=== PATIENT | male | born 1975 | race Caucasian/White ===

== ENCOUNTER 2020-08-21 11:39 | Inpatient (IN) | payer BC ==
--- NOTE | 2020-08-21 12:02 | EDM.PDOC ---
ED HPI GENERAL MEDICAL PROBLEM - General Stated Complaint: UTI Time Seen by Provider: 08/21/20 11:45 Source of Information: Reports: Patient History Limitations: Reports: No Limitations - History of Present Illness INITIAL COMMENTS - FREE TEXT/NARRATIVE: pt c/o lower abd pain radiating to his back x 1 week w fever and chills, denies nausea, emesis, or diarrhea , report constipation and dysuria. right lower abd Pain Score (Numeric/FACES): 8 - Related Data Allergies Allergy/AdvReac Type Severity Reaction Status Date / Time No Known Allergies Allergy Verified 08/21/20 12:04 Home Meds: Home Meds NK [No Known Home Meds] 08/21/20 [History] ED ROS GENERAL - Review of Systems Review Of Systems: See Below Constitutional: Reports: Fever, Chills HEENT: Reports: No Symptoms Respiratory: Reports: No Symptoms Cardiovascular: Reports: No Symptoms GI/Abdominal: Reports: Abdominal Pain : Reports: Dysuria, Frequency Musculoskeletal: Reports: No Symptoms Skin: Reports: No Symptoms Neurological: Reports: No Symptoms Psychiatric: Reports: No Symptoms ED EXAM, GENERAL - Physical Exam Exam: See Below Exam Limited By: No Limitations General Appearance: Alert, Moderate Distress Nose: Normal Inspection Throat/Mouth: Normal Inspection, Normal Oropharynx Head: Atraumatic, Normocephalic Neck: Normal Inspection, Supple, Non-Tender Respiratory/Chest: No Respiratory Distress, Lungs Clear Cardiovascular: Normal Peripheral Pulses, Regular Rate, Rhythm GI/Abdominal: Normal Bowel Sounds, Soft, Tender (tender over lower abd , pt has bilateral CVAT.). No: Guarding, Rebound Back Exam: Normal Inspection Extremities: Normal Inspection, Normal Range of Motion Neurological: Alert, CN II-XII Intact, Normal Reflexes, No Motor/Sensory Deficits Skin Exam: Warm Course - Vital Signs Text/Narrative:: labs and CT results were explained to pt. pt has bilateral pyelonephritis , cipro and tylenol were given. Dr Taylor was contacted and was in acceptance of pt care. Last Recorded V/S: Last Vital Signs Temp 37.7 C 08/21/20 11:39 Pulse 110 H 08/21/20 11:39 Resp 18 08/21/20 11:39 BP 142/71 H 08/21/20 11:39 Pulse Ox 100 08/21/20 11:39 - Orders/Labs/Meds Orders: Active Orders 24 hr Category Date Time Status Abdomen Pelvis w Cont [CT] Stat Exams 08/21/20 12:03 Taken Sodium Chloride 0.9% [Normal Saline] 1,000 ml Med 08/21/20 12:03 Active IV .BOLUS Sodium Chloride 0.9% [Normal Saline] 1,000 ml Med 08/21/20 13:45 Active IV ASDIRECTED Medication Orders Sodium Chloride (Normal Saline) 1,000 mls @ 999 drops/hr IV .BOLUS ONE Stop: 08/22/20 03:03 Last Admin: 08/21/20 12:17 Dose: 999 drops/hr Documented by: LANE Sodium Chloride (Normal Saline) 1,000 mls @ 150 mls/hr IV ASDIRECTED MANDO Labs: Laboratory Tests 08/21/20 08/21/20 08/21/20 Range/Units 12:47 12:47 12:47 WBC 7.5 (3.2-10.1) x10-3/uL RBC 5.16 (3.90-5.90) x10(6)uL Hgb 14.8 (12.9-17.7) g/dL Hct 44.9 (38.3-50.1) % MCV 87.0 (80.8-98.7) fL MCH 28.7 (27.0-33.3) pg MCHC 33.1 (28.7-35.3) g/dL RDW 12.7 (12.4-15.0) % Plt Count 173 (117-477) x10(3)uL MPV 8.6 (6.7-11.0) fL Add Manual Diff Yes Neutrophils % (Manual) 89 H (46-82) % Band Neutrophils % 1 (0-6) % Lymphocytes % (Manual) 8 L (13-37) % Monocytes % (Manual) 2 L (4-12) % Sodium 141 (135-145) mmol/L Potassium 4.0 (3.5-5.3) mmol/L Chloride 102 (100-110) mmol/L Carbon Dioxide 27 (21-32) mmol/L BUN 12 (7-18) mg/dL Creatinine 1.4 H (0.70-1.30) mg/dL Est Cr Clr Drug Dosing 64.65 mL/min Estimated GFR (MDRD) 55 L (>60) BUN/Creatinine Ratio 8.6 L (9-20) Glucose 106 (80-116) mg/dL Calcium 9.2 (8.6-10.2) mg/dL Total Bilirubin 1.0 (0.1-1.3) mg/dL AST 48 H (5-25) IU/L ALT 98 H (12-36) U/L Alkaline Phosphatase 189 H (56-112) IU/L Total Protein 8.0 (6.0-8.0) g/dL Albumin 3.4 L (3.5-5.2) g/dL Globulin 4.6 g/dL Albumin/Globulin Ratio 0.7 Lipase 86 (73-393) U/L Meds: Medications Generic Name Dose Route Start Last Admin Trade Name Freq PRN Reason Stop Dose Admin Sodium Chloride 1,000 mls @ 999 drops/hr 08/21/20 12:03 08/21/20 12:17 Normal Saline IV 08/22/20 03:03 999 drops/hr .BOLUS ONE Administration Sodium Chloride 1,000 mls @ 150 mls/hr 08/21/20 13:45 Normal Saline IV ASDIRECTED MANDO Discontinued Medications Generic Name Dose Route Start Last Admin Trade Name Freq PRN Reason Stop Dose Admin Acetaminophen 1,000 mg 08/21/20 13:47 Tylenol Extra Strength PO 08/21/20 13:48 ONETIME ONE Hydromorphone HCl 1 mg 08/21/20 13:45 Dilaudid IVPUSH 08/21/20 13:46 ONETIME ONE Iopamidol 100 ml 08/21/20 12:36 08/21/20 12:57 Isovue-370 (76%) IV 08/21/20 12:37 100 ml . DIRECTED ONE Administration Morphine Sulfate 4 mg 08/21/20 12:03 08/21/20 12:17 Morphine IVPUSH 08/21/20 12:04 4 mg ONETIME ONE Administration Ondansetron HCl 4 mg 08/21/20 12:10 08/21/20 12:17 Zofran IVPUSH 08/21/20 12:11 4 mg ONETIME ONE Administration Departure - Departure Time of Disposition: 13:52 Disposition: Admitted As Inpatient 65 Clinical Impression: Acute pyelonephritis - Discharge Information Sepsis Event Note (ED) - Focused Exam Vital Signs: Vital Signs Temp Pulse Resp BP Pulse Ox 08/21/20 11:39 37.7 C 110 H 18 142/71 H 100 - My Orders Last 24 Hours: My Active Orders 08/21/20 12:03 Abdomen Pelvis w Cont [CT] Stat Sodium Chloride 0.9% [Normal Saline] 1,000 ml IV .BOLUS 08/21/20 13:45 Sodium Chloride 0.9% [Normal Saline] 1,000 ml IV ASDIRECTED - Assessment/Plan Last 24 Hours: My Active Orders 08/21/20 12:03 Abdomen Pelvis w Cont [CT] Stat Sodium Chloride 0.9% [Normal Saline] 1,000 ml IV .BOLUS 08/21/20 13:45 Sodium Chloride 0.9% [Normal Saline] 1,000 ml IV ASDIRECTED
[2020-08-21] MEDS ORDERED: Morphine 4 MG/ML VIAL IVPUSH ONE (12:03)
[2020-08-21] MEDS ORDERED: Sodium Chloride 0.9% 1,000 ML IV ONE (12:03)
[2020-08-21] MEDS ORDERED: Ondansetron 4 MG/2 ML SDV IVPUSH ONE (12:10)
[2020-08-21] MEDS ORDERED: Iopamidol 755 Mg/ML 100 ML Bottle IV ONE (12:36)
[2020-08-21] MEDS ORDERED: HYDROmorphone 2 MG/ML SDV IVPUSH ONE (13:45)
[2020-08-21] MEDS ORDERED: Acetaminophen 500 MG Tab PO ONE (13:47)
[2020-08-21] MEDS: Sodium Chloride 0.9% 1,000 ML IV SCH ×2 (13:51→20:18)
[2020-08-21] MEDS ORDERED: Ciprofloxacin in D5W 400 MG in Premix Bag 1 BAG IV ONE ×2 (13:54)
[2020-08-21] MEDS ORDERED: Acetaminophen 500 MG Tab PO PRN (14:20)
[2020-08-21] MEDS ORDERED: Acetaminophen/HYDROcodone 325-5 MG Tab PO PRN (14:21)
[2020-08-21] MEDS ORDERED: Ketorolac 30 MG/ML SDV IVPUSH SCH (14:30)
--- NOTE | 2020-08-21 14:59 | CT ---
INDICATION: Abdominal pain - right lower quadrant, question appy. CT ABDOMEN AND PELVIS WITH CONTRAST: Spiral 3.75 mm axial sections were obtained through the abdomen and pelvis with 100 mL of Isovue-370 at 2 mL per second with sagittal and coronal reconstructions 08/21/20 - no comparisons. Total exam DLP was 529.39 mGy-cm. The lower lung vanegas and pleural spaces visualized revealed some minimal linear appearing densities subpleural at the left lower lobe at the lung base which may represent fibrosis. A definite active infiltrate or effusion was not identified. Heart did not appear enlarged. No pericardial effusion was seen. The liver, gallbladder, adrenal glands, spleen, and pancreas appeared normal. No hepatobiliary dilatation was suggested. No retroperitoneal masses were identified. A mild degree of retroperitoneal lymphadenopathy is noted which is nonspecific, but could be reactive to infection. The kidneys appeared normal in size and shape with no cortical irregularities or evidence of obstructive uropathy or definite calculi. However, there are multiple areas of decreased contrast enhancement of the renal cortex bilaterally strongly suggestive pyelonephritis. Additionally, in the urinary bladder, there is some thickening of the urinary bladder wall which suggests the possibility of cystitis. What appears to be the appendix was seen on axial images 76 through 85 and did not suggest appendicitis. What appears to be a calcific rim low-density mass is noted in the upper pelvis - lower abdomen near the midline just to the left which measures approximately 2 cm and is of questionable etiology. It may represent a peritoneal calculus of indeterminate nature. No evidence of free air or bowel obstruction was identified. No other organomegaly, mass lesions, or free fluid collections were identified in the abdomen or pelvis. IMPRESSION: Findings are felt to be compatible with pyelonephritis and cystitis, but should be correlated clinically. Report was called to Dr. Gonzales at 1312 hours. [facility]
--- NOTE | 2020-08-21 15:35 | PCM.HP.2 ---
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 Dr Waggoner saw him did labs and UA, suspected pyelonephritis, so sent over to ER for further evaluation and CT scan. His highest fever has been 104.9F, has been taking acetaminophen & ibuprofen alternating at home. Denies any sinus symptoms, shortness of breath, nausea, vomiting or diarrhea. Had a small hard stool yesterday. He states he has had some discharge on his underwear, no new sexual partners in last 10 years, and reports that the bathrooms at work are not clean, when he has to sit down to use when he has bowel movement. Bilateral CVA tenderness in ER, had CT abdomen/pelvis in ER and found to have bilateral pyelonephritis with cystitis. UA positive done in clinic showed large blood, nitrites positive, Large Leukocyte esterase, >30/hpf RBC, >50/hpf WBC, occasional epithelial cells, Moderate bacteria, WBC clumps present. Urine culture pending at [facility] lab, will get plated tonight, possible prelim report on Tuesday. right lower abd Pain Score (Numeric/FACES): 8 - Related Data Allergies/Adverse Reactions: Allergies Allergy/AdvReac Type Severity Reaction Status Date / Time No Known Allergies Allergy Verified 08/21/20 12:04 Home Medications: Home Meds NK [No Known Home Meds] 08/21/20 [History] Past Medical History - Past Health History Medical/Surgical History: Denies Medical/Surgical History Social & Family History - Tobacco Use Tobacco Use Status *Q: Never Tobacco User H&P Review of Systems - Review of Systems: Review Of Systems: Comprehensive ROS is negative, except as noted in HPI. Exam - Exam Exam: See Below - Vital Signs Vital Signs: Last Vital Signs Temp 99.8 F 08/21/20 11:39 Pulse 110 H 08/21/20 11:39 Resp 18 08/21/20 11:39 BP 142/71 H 08/21/20 11:39 Pulse Ox 100 08/21/20 11:39 Weight: 178 lb - Exam General: Alert, Oriented, Cooperative HEENT: PERRLA, Conjunctiva Clear, EOMI, Hearing Intact, Mucosa Moist & [place], Posterior Pharynx Clear Neck: Trachea Midline Lungs: Clear to Auscultation, Normal Respiratory Effort. No: Wheezing Cardiovascular: Tachycardia. No: Systolic Murmur, Diastolic Murmur GI/Abdominal Exam: Normal Bowel Sounds, Soft, No Distention, Guarding, Tender. No: Rigid, Rebound (Male) Exam: Deferred Extremities: No Pedal Edema, Normal Capillary Refill Peripheral Pulses: 2+: Radial (L), Radial (R) Skin: Warm, Dry, Intact. No: Rash Psychiatric: Normal Affect, Normal Mood - Patient Data Lab Results Last 24 hrs: Laboratory Results - last 24 hr 08/21/20 08/21/20 08/21/20 Range/Units 12:47 12:47 12:47 WBC 7.5 (3.2-10.1) x10-3/uL RBC 5.16 (3.90-5.90) x10(6)uL Hgb 14.8 (12.9-17.7) g/dL Hct 44.9 (38.3-50.1) % MCV 87.0 (80.8-98.7) fL MCH 28.7 (27.0-33.3) pg MCHC 33.1 (28.7-35.3) g/dL RDW 12.7 (12.4-15.0) % Plt Count 173 (117-477) x10(3)uL MPV 8.6 (6.7-11.0) fL Add Manual Diff Yes Neutrophils % (Manual) 89 H (46-82) % Band Neutrophils % 1 (0-6) % Lymphocytes % (Manual) 8 L (13-37) % Monocytes % (Manual) 2 L (4-12) % Sodium 141 (135-145) mmol/L Potassium 4.0 (3.5-5.3) mmol/L Chloride 102 (100-110) mmol/L Carbon Dioxide 27 (21-32) mmol/L BUN 12 (7-18) mg/dL Creatinine 1.4 H (0.70-1.30) mg/dL Est Cr Clr Drug Dosing 64.65 mL/min Estimated GFR (MDRD) 55 L (>60) BUN/Creatinine Ratio 8.6 L (9-20) Glucose 106 (80-116) mg/dL Calcium 9.2 (8.6-10.2) mg/dL Total Bilirubin 1.0 (0.1-1.3) mg/dL AST 48 H (5-25) IU/L ALT 98 H (12-36) U/L Alkaline Phosphatase 189 H (56-112) IU/L Total Protein 8.0 (6.0-8.0) g/dL Albumin 3.4 L (3.5-5.2) g/dL Globulin 4.6 g/dL Albumin/Globulin Ratio 0.7 Lipase 86 (73-393) U/L Result Diagrams: 08/21/20 12:47 08/21/20 12:47 Sepsis Event Note - Evaluation Sepsis Screening Result: No Definite Risk - Focused Exam Vital Signs: Vital Signs Temp Pulse Resp BP Pulse Ox 08/21/20 11:39 99.8 F 110 H 18 142/71 H 100 - Problem List (1) Acute pyelonephritis SNOMED Code(s): 37375129 ICD Code: N10 - ACUTE PYELONEPHRITIS Status: Acute Current Visit: Yes Problem Details: Bilateral pyelonephritis on CT with acute cystitis. Appendix was normal. Prostate was not commented Ciprofloxacin 400 mg IV q12h, NS at 150 ml/hr. UA done in clinic, culture was done and sent to [facility] lab from clinic, preliminary report possibly Tuesday with final on Tuesday. Toradol 30 mg IV q6h, Acetaminophen 650 mg q4h as needed, hydrocodone/apap 5/325 mg q4h as needed severe pain. Zofran 4 mg as needed nausea. (2) Acute cystitis SNOMED Code(s): 16890890 ICD Code: N30.00 - ACUTE CYSTITIS WITHOUT HEMATURIA Status: Acute Current Visit: Yes Problem Details: UA: blood, leukocytes, done at [facility] will check to see if they did culture. He had ciprofloxacin done in ER already. (3) Dehydration SNOMED Code(s): 80570107 ICD Code: E86.0 - DEHYDRATION Status: Acute Current Visit: Yes (4) Fever SNOMED Code(s): 647877834 ICD Code: R50.9 - FEVER, UNSPECIFIED Status: Acute Current Visit: Yes Problem List Initiated/Reviewed/Updated: Yes Orders Last 24hrs: Active Orders 24 hr Category Date Time Status Patient Status [ADT] Routine ADT 08/21/20 14:01 Active Ambulate [RC] ASDIRECTED Care 08/21/20 15:29 Ordered Oxygen Therapy [RC] PRN Care 08/21/20 14:01 Active VTE/DVT Education [RC] Per Unit Routine Care 08/21/20 14:01 Active Vital Signs [RC] Q4H Care 08/21/20 14:01 Active Regular Diet [DIET] Diet 08/21/20 Dinner Ordered BASIC METABOLIC PANEL,BMP [CHEM] Routine Lab 08/22/20 06:00 Ordered Acetaminophen [Tylenol Extra Strength] Med 08/21/20 14:20 Active 650 mg PO Q4H PRN Acetaminophen/HYDROcodone [[place] 325-5 MG] Med 08/21/20 14:21 Active 1 tab PO Q4H PRN Ciprofloxacin in D5W [Cipro in D5W 400 MG/200 ML] 400 Med 08/22/20 02:00 Active mg Premix Bag 1 bag IV Q12H Ketorolac [Toradol] Med 08/21/20 14:30 Active 30 mg IVPUSH Q6H Sodium Chloride 0.9% [Normal Saline] 1,000 ml Med 08/21/20 12:03 Active IV .BOLUS Sodium Chloride 0.9% [Normal Saline] 1,000 ml Med 08/21/20 13:45 Active IV ASDIRECTED Resuscitation Status Routine Resus Stat 08/21/20 14:01 Ordered Medication Orders Acetaminophen (Tylenol Extra Strength) 650 mg PO Q4H PRN PRN Reason: Pain Hydrocodone Bitart/Acetaminophen ([place] 325-5 Mg) 1 tab PO Q4H PRN PRN Reason: Pain (severe 7-10) Sodium Chloride (Normal Saline) 1,000 mls @ 999 drops/hr IV .BOLUS ONE Stop: 08/22/20 03:03 Last Admin: 08/21/20 12:17 Dose: 999 drops/hr Documented by: LANE Sodium Chloride (Normal Saline) 1,000 mls @ 150 mls/hr IV ASDIRECTED [facility] Last Admin: 08/21/20 13:51 Dose: 150 mls/hr Documented by: LANE Ciprofloxacin/Dextrose 400 mg/ (Premix) 200 mls @ 200 mls/hr IV Q12H MANDO Ketorolac Tromethamine (Toradol) 30 mg IVPUSH Q6H [facility] Stop: 08/26/20 14:31 Assessment/Plan Comment:: 1. Admit for inpatient treatment of Bilateral pyelonephritis, acute cystitis, dehydration, fever. 2. Pyelonephritis: Cipro 400 mg IV q12h, NS at 150ml/hr, repeat BMP tomorrow. Fever/pain: acetaminophen as needed, Toradol 30 mg scheduled, hydrocodone/apap 5/325 mg po q4h as needed severe pain. UA done at [place], culture was done and sent to [facility] lab, will check on Sat/Sun for prelim report. 3. Regular diet. 4. Ambulate. 5. CODE: FULL. - Mortality Measure Prognosis:: Good
[2020-08-21] MEDS ORDERED: Ketorolac 30 MG/ML SDV IVPUSH PRN (16:21)
[2020-08-22] MEDS: Ciprofloxacin in D5W 400 MG in Premix Bag 1 BAG IV SCH ×4 (02:21→15:03)
[2020-08-22] MEDS: Sodium Chloride 0.9% 1,000 ML IV SCH ×3 (02:37→19:25)
[2020-08-22] MEDS: Saccharomyces Boulardii (Probiotic) 250 MG Cap PO SCH ×2 (10:16→21:29)
--- NOTE | 2020-08-22 10:24 | PCM.PN ---
- General Info Date of Service: 08/22/20 Subjective Update: Jose Roberto is feeling better this morning, had pain early this morning but nothing now. Getting ready to eat breakfast. Had a small hard stool this morning. He states he did not sleep well, usually takes Melatonin and a sleep tea at night. No nausea or vomiting. - Patient Data Vitals - Most Recent: Last Vital Signs Temp 97.9 F 08/22/20 08:00 Pulse 74 08/22/20 08:00 Resp 16 08/22/20 08:00 BP 96/62 08/22/20 08:00 Pulse Ox 97 08/22/20 08:00 Weight - Most Recent: 171 lb 5 oz I&O - Last 24 Hours: Intake & Output 08/21/20 08/22/20 08/22/20 22:59 06:59 14:59 Intake Total 2260 1360 Output Total 950 Balance 2260 410 Lab Results Last 24 Hours: Laboratory Results - last 24 hr 08/21/20 08/21/20 08/21/20 Range/Units 12:47 12:47 12:47 WBC 7.5 (3.2-10.1) x10-3/uL RBC 5.16 (3.90-5.90) x10(6)uL Hgb 14.8 (12.9-17.7) g/dL Hct 44.9 (38.3-50.1) % MCV 87.0 (80.8-98.7) fL MCH 28.7 (27.0-33.3) pg MCHC 33.1 (28.7-35.3) g/dL RDW 12.7 (12.4-15.0) % Plt Count 173 (117-477) x10(3)uL MPV 8.6 (6.7-11.0) fL Add Manual Diff Yes Neutrophils % (Manual) 89 H (46-82) % Band Neutrophils % 1 (0-6) % Lymphocytes % (Manual) 8 L (13-37) % Monocytes % (Manual) 2 L (4-12) % Sodium 141 (135-145) mmol/L Potassium 4.0 (3.5-5.3) mmol/L Chloride 102 (100-110) mmol/L Carbon Dioxide 27 (21-32) mmol/L BUN 12 (7-18) mg/dL Creatinine 1.4 H (0.70-1.30) mg/dL Est Cr Clr Drug Dosing 64.65 mL/min Estimated GFR (MDRD) 55 L (>60) BUN/Creatinine Ratio 8.6 L (9-20) Glucose 106 (80-116) mg/dL Calcium 9.2 (8.6-10.2) mg/dL Total Bilirubin 1.0 (0.1-1.3) mg/dL AST 48 H (5-25) IU/L ALT 98 H (12-36) U/L Alkaline Phosphatase 189 H (56-112) IU/L Total Protein 8.0 (6.0-8.0) g/dL Albumin 3.4 L (3.5-5.2) g/dL Globulin 4.6 g/dL Albumin/Globulin Ratio 0.7 Lipase 86 (73-393) U/L SARS-CoV-2 RNA (JAIRO) (NEGATIVE) 08/21/20 08/22/20 Range/Units 20:30 06:25 WBC (3.2-10.1) x10-3/uL RBC (3.90-5.90) x10(6)uL Hgb (12.9-17.7) g/dL Hct (38.3-50.1) % MCV (80.8-98.7) fL MCH (27.0-33.3) pg MCHC (28.7-35.3) g/dL RDW (12.4-15.0) % Plt Count (117-477) x10(3)uL MPV (6.7-11.0) fL Add Manual Diff Neutrophils % (Manual) (46-82) % Band Neutrophils % (0-6) % Lymphocytes % (Manual) (13-37) % Monocytes % (Manual) (4-12) % Sodium 141 (135-145) mmol/L Potassium 3.5 (3.5-5.3) mmol/L Chloride 105 (100-110) mmol/L Carbon Dioxide 28 (21-32) mmol/L BUN 14 (7-18) mg/dL Creatinine 1.1 (0.70-1.30) mg/dL Est Cr Clr Drug Dosing 78.45 mL/min Estimated GFR (MDRD) > 60 (>60) BUN/Creatinine Ratio 12.7 (9-20) Glucose 164 H (80-116) mg/dL Calcium 7.7 L (8.6-10.2) mg/dL Total Bilirubin (0.1-1.3) mg/dL AST (5-25) IU/L ALT (12-36) U/L Alkaline Phosphatase (56-112) IU/L Total Protein (6.0-8.0) g/dL Albumin (3.5-5.2) g/dL Globulin g/dL Albumin/Globulin Ratio Lipase (73-393) U/L SARS-CoV-2 RNA (JAIRO) Negative (NEGATIVE) Med Orders - Current: Current Medications Acetaminophen (Tylenol Extra Strength) 650 mg PO Q4H PRN PRN Reason: Pain/Fever Sodium Chloride (Normal Saline) 1,000 mls @ 125 mls/hr IV ASDIRECTED [facility] Last Admin: 08/22/20 10:14 Dose: 125 mls/hr Documented by: Ciprofloxacin/Dextrose 400 mg/ (Premix) 200 mls @ 200 mls/hr IV Q12H [facility] Last Admin: 08/22/20 02:21 Dose: 200 mls/hr Documented by: Ketorolac Tromethamine (Toradol) 30 mg IVPUSH Q6H PRN PRN Reason: Pain/Fever Stop: 08/26/20 14:31 Last Admin: 08/22/20 05:09 Dose: 30 mg Documented by: Melatonin (Melatonin) 6 mg PO BEDTIME PRN PRN Reason: Insomnia Saccharomyces Boulardii (Florastor) 500 mg PO BID [facility] Last Admin: 08/22/20 10:16 Dose: 500 mg Documented by: Discontinued Medications Acetaminophen (Tylenol Extra Strength) 1,000 mg PO ONETIME ONE Stop: 08/21/20 13:48 Last Admin: 08/21/20 13:52 Dose: 1,000 mg Documented by: Hydrocodone Bitart/Acetaminophen ([place] 325-5 Mg) 1 tab PO Q4H PRN PRN Reason: Pain (severe 7-10) Hydromorphone HCl (Dilaudid) 1 mg IVPUSH ONETIME ONE Stop: 08/21/20 13:46 Last Admin: 08/21/20 13:51 Dose: 1 mg Documented by: Sodium Chloride (Normal Saline) 1,000 mls @ 999 drops/hr IV .BOLUS ONE Stop: 08/22/20 03:03 Last Admin: 08/21/20 12:17 Dose: 999 drops/hr Documented by: Ciprofloxacin/Dextrose 400 mg/ (Premix) 200 mls @ 200 mls/hr IV ONETIME ONE Stop: 08/21/20 14:53 Last Admin: 08/21/20 14:09 Dose: 200 mls/hr Documented by: Iopamidol (Isovue-370 (76%)) 100 ml IV . DIRECTED ONE Stop: 08/21/20 12:37 Last Admin: 08/21/20 12:57 Dose: 100 ml Documented by: Ketorolac Tromethamine (Toradol) 30 mg IVPUSH Q6H [facility]ANDO Stop: 08/26/20 14:31 Last Admin: 08/21/20 16:25 Dose: Not Given Documented by: Morphine Sulfate (Morphine) 4 mg IVPUSH ONETIME ONE Stop: 08/21/20 12:04 Last Admin: 08/21/20 12:17 Dose: 4 mg Documented by: Ondansetron HCl (Zofran) 4 mg IVPUSH ONETIME ONE Stop: 08/21/20 12:11 Last Admin: 08/21/20 12:17 Dose: 4 mg Documented by: - Exam General: Alert, Oriented, Cooperative, No Acute Distress Lungs: Clear to Auscultation, Normal Respiratory Effort Cardiovascular: Regular Rate, Regular Rhythm GI/Abdominal Exam: Soft, Non-Tender, No Distention, Abnormal Bowel Sounds (hypoactive) Sepsis Event Note - Evaluation Sepsis Screening Result: No Definite Risk - Focused Exam Vital Signs: Vital Signs Temp Pulse Resp BP Pulse Ox 08/22/20 08:00 97.9 F 74 16 96/62 97 08/22/20 04:00 99.0 F 86 16 109/67 98 08/22/20 02:00 97.9 F 08/22/20 00:00 98.2 F 90 16 114/65 98 - Problem List & Annotations (1) Acute pyelonephritis SNOMED Code(s): 32745868 Code(s): N10 - ACUTE PYELONEPHRITIS Status: Acute Current Visit: Yes Annotation/Comment:: Bilateral pyelonephritis on CT with acute cystitis. Ciprofloxacin 400 mg IV q12h, NS at 125 ml/hr. UA done in clinic, culture was done and sent to [facility] lab from clinic, preliminary report possibly Tuesday with final on Tuesday. Toradol 30 mg IV q6h, Acetaminophen 650 mg q4h as needed. Zofran 4 mg as needed nausea. (2) Acute cystitis SNOMED Code(s): 69515645 Code(s): N30.00 - ACUTE CYSTITIS WITHOUT HEMATURIA Status: Acute Current Visit: Yes Annotation/Comment:: UA positive for nitrites, LE, blood, wbc clumps present. UC pending([place] lab). (3) Dehydration SNOMED Code(s): 87238032 Code(s): E86.0 - DEHYDRATION Status: Acute Current Visit: Yes Annotation/Comment:: Improving. (4) Fever SNOMED Code(s): 444918706 Code(s): R50.9 - FEVER, UNSPECIFIED Status: Acute Current Visit: Yes - Problem List Review Problem List Initiated/Reviewed/Updated: Yes - My Orders Last 24 Hours: My Active Orders 08/21/20 14:20 Acetaminophen [Tylenol Extra Strength] 650 mg PO Q4H PRN 08/21/20 15:29 Ambulate [RC] ,,17,08/21/20 Dinner Regular Diet [DIET] 08/21/20 16:21 Ketorolac [Toradol] 30 mg IVPUSH Q6H PRN 08/22/20 02:00 Ciprofloxacin in D5W [Cipro in D5W 400 MG/200 ML] 400 mg Premix Bag 1 bag IV Q12H 08/22/20 09:58 Melatonin 6 mg PO BEDTIME PRN 08/22/20 10:00 Saccharomyces Boulardii [Florastor] 500 mg PO BID - Plan Plan:: 1. Pyelonephritis: Cipro 400 mg IV q12h, NS at 125ml/hr, repeat BMP tomorrow. Fever/pain: acetaminophen as needed, Toradol 30 mg scheduled, UA done at [place], culture was done and sent to [facility] lab, will check on Sat/Sun for prelim report. 2. Regular diet. 3. Ambulate.
[2020-08-22] MEDS: Acetaminophen 325 MG Tab PO PRN ×2 (16:01→23:40)
[2020-08-22] MEDS: Melatonin 3 MG Tab PO PRN (21:29)
[2020-08-23] MEDS: Ciprofloxacin in D5W 400 MG in Premix Bag 1 BAG IV SCH ×4 (01:31→14:10)
[2020-08-23] MEDS: Sodium Chloride 0.9% 1,000 ML IV SCH (05:08)
[2020-08-23] MEDS: Acetaminophen 325 MG Tab PO PRN ×3 (07:55→22:08)
[2020-08-23] MEDS: Saccharomyces Boulardii (Probiotic) 250 MG Cap PO SCH ×2 (07:59→21:27)
[2020-08-23] MEDS: Ibuprofen 400 MG Tab PO PRN ×2 (09:34→20:13)
--- NOTE | 2020-08-23 10:39 | PCM.PN ---
- General Info Date of Service: 08/23/20 Subjective Update: Febrile this morning, has not been getting alternating Toradol and Tylenol for his fevers, will change to Ibuprofen & Tylenol alternating. He is concerned that his fevers are not getting better. Using Google Translate, explained that infection in the kidneys it is common to still have fevers for a few days even with antibiotics, his urine culture growing E. coli, I should have report today on sensitivities if we need to change antibiotics. He is eating and drinking well, will saline lock. No pain since yesterday morning. - Patient Data Vitals - Most Recent: Last Vital Signs Temp 100.2 F 08/23/20 09:34 Pulse 98 08/23/20 05:06 Resp 16 08/23/20 05:06 BP 122/78 08/23/20 05:06 Pulse Ox 95 08/23/20 05:06 Weight - Most Recent: 171 lb 5 oz I&O - Last 24 Hours: Intake & Output 08/22/20 08/23/20 08/23/20 22:59 06:59 14:59 Intake Total 900 1607 Balance 900 1607 Med Orders - Current: Current Medications Acetaminophen (Tylenol) 650 mg PO Q4H PRN PRN Reason: Pain/Fever Last Admin: 08/23/20 07:55 Dose: 650 mg Documented by: Ciprofloxacin/Dextrose 400 mg/ (Premix) 200 mls @ 200 mls/hr IV Q12H [facility] Last Admin: 08/23/20 01:31 Dose: 200 mls/hr Documented by: Ibuprofen (Motrin) 400 mg PO Q4H PRN PRN Reason: Pain/Fever Last Admin: 08/23/20 09:34 Dose: 400 mg Documented by: Melatonin (Melatonin) 6 mg PO BEDTIME PRN PRN Reason: Insomnia Last Admin: 08/22/20 21:29 Dose: 6 mg Documented by: Saccharomyces Boulardii (Florastor) 500 mg PO BID [facility] Last Admin: 08/23/20 07:59 Dose: 500 mg Documented by: Sodium Chloride (Saline Flush) 10 ml FLUSH DAILY PRN PRN Reason: Keep Vein Open Discontinued Medications Acetaminophen (Tylenol Extra Strength) 1,000 mg PO ONETIME ONE Stop: 08/21/20 13:48 Last Admin: 08/21/20 13:52 Dose: 1,000 mg Documented by: Acetaminophen (Tylenol Extra Strength) 650 mg PO Q4H PRN PRN Reason: Pain/Fever Hydrocodone Bitart/Acetaminophen ([place] 325-5 Mg) 1 tab PO Q4H PRN PRN Reason: Pain (severe 7-10) Hydromorphone HCl (Dilaudid) 1 mg IVPUSH ONETIME ONE Stop: 08/21/20 13:46 Last Admin: 08/21/20 13:51 Dose: 1 mg Documented by: Sodium Chloride (Normal Saline) 1,000 mls @ 999 drops/hr IV .BOLUS ONE Stop: 08/22/20 03:03 Last Admin: 08/21/20 12:17 Dose: 999 drops/hr Documented by: Sodium Chloride (Normal Saline) 1,000 mls @ 125 mls/hr IV ASDIRECTED [facility] Last Admin: 08/23/20 05:08 Dose: 125 mls/hr Documented by: Ciprofloxacin/Dextrose 400 mg/ (Premix) 200 mls @ 200 mls/hr IV ONETIME ONE Stop: 08/21/20 14:53 Last Admin: 08/21/20 14:09 Dose: 200 mls/hr Documented by: Iopamidol (Isovue-370 (76%)) 100 ml IV . DIRECTED ONE Stop: 08/21/20 12:37 Last Admin: 08/21/20 12:57 Dose: 100 ml Documented by: Ketorolac Tromethamine (Toradol) 30 mg IVPUSH Q6H [facility] Stop: 08/26/20 14:31 Last Admin: 08/21/20 16:25 Dose: Not Given Documented by: Ketorolac Tromethamine (Toradol) 30 mg IVPUSH Q6H PRN PRN Reason: Pain/Fever Stop: 08/26/20 14:31 Last Admin: 08/22/20 05:09 Dose: 30 mg Documented by: Morphine Sulfate (Morphine) 4 mg IVPUSH ONETIME ONE Stop: 08/21/20 12:04 Last Admin: 08/21/20 12:17 Dose: 4 mg Documented by: Ondansetron HCl (Zofran) 4 mg IVPUSH ONETIME ONE Stop: 08/21/20 12:11 Last Admin: 08/21/20 12:17 Dose: 4 mg Documented by: - Exam General: Alert, Oriented, Cooperative, No Acute Distress Lungs: Clear to Auscultation, Normal Respiratory Effort Cardiovascular: Regular Rate, Regular Rhythm GI/Abdominal Exam: Normal Bowel Sounds, Soft, Non-Tender, No Distention Extremities: No Pedal Edema Sepsis Event Note - Evaluation Sepsis Screening Result: No Definite Risk - Focused Exam Vital Signs: Vital Signs Temp Temp Pulse Resp BP Pulse Ox 08/23/20 09:34 100.2 F 08/23/20 05:06 99.6 F 98 16 122/78 95 08/23/20 00:00 100.2 F 100 16 122/82 95 - Problem List & Annotations (1) Acute pyelonephritis SNOMED Code(s): 49495056 Code(s): N10 - ACUTE PYELONEPHRITIS Status: Acute Current Visit: Yes Annotation/Comment:: Bilateral pyelonephritis on CT with acute cystitis. Ciprofloxacin 400 mg IV q12h, Saline lock. Urine culture preliminary report grew E. coli >100,000 cfu, sensitivites pending. Ibuprofen 400 mg q4h as needed, alternating with Acetaminophen 650 mg q4h as needed. Zofran 4 mg as needed nausea. (2) Acute cystitis SNOMED Code(s): 91526666 Code(s): N30.00 - ACUTE CYSTITIS WITHOUT HEMATURIA Status: Acute Current Visit: Yes Annotation/Comment:: UA positive for nitrites, LE, blood, wbc clumps present. UC: >100,000 cfu, E. coli(report in physical chart). (3) Dehydration SNOMED Code(s): 40299813 Code(s): E86.0 - DEHYDRATION Status: Acute Current Visit: Yes Annotation/Comment:: Improving. (4) Fever SNOMED Code(s): 827965886 Code(s): R50.9 - FEVER, UNSPECIFIED Status: Acute Current Visit: Yes - Problem List Review Problem List Initiated/Reviewed/Updated: Yes - My Orders Last 24 Hours: My Active Orders 08/22/20 09:58 Melatonin 6 mg PO BEDTIME PRN 08/22/20 10:00 Saccharomyces Boulardii [Florastor] 500 mg PO BID 08/22/20 15:37 Acetaminophen [TylenoL] 650 mg PO Q4H PRN 08/23/20 08:59 Ibuprofen [Motrin] 400 mg PO Q4H PRN 08/23/20 09:30 Cooling Warming Measures [RC] ASDIRECTED Ice Pack [Ice Therapy] [OM.PC] Routine 08/23/20 09:33 Sodium Chloride 0.9% [Saline Flush] 10 ml FLUSH DAILY PRN Convert IV to Peripheral Lock [Convert IV to Saline Lock] [OM.PC] Routine 08/23/20 09:34 Communication Order [RC] ROUTINE - Plan Plan:: 1. Pyelonephritis: Cipro 400 mg IV q12h, saline lock. Fever/pain: acetaminophen as needed, ibuprofen as needed, ice pack to neck if not due for either medication, Urine culture yesterday showed E. coli, will look today to see if sensitivities are back. 2. Regular diet. Saline lock. 3. Ambulate.
[2020-08-23] MEDS: Sodium Chloride 0.9% 10 ML Syringe FLUSH PRN ×2 (15:20→23:38)
[2020-08-23] MEDS ORDERED: Polyethylene Glycol 3350 Powder 17 GM Packet PO PRN (17:23)
[2020-08-23] MEDS: Melatonin 3 MG Tab PO PRN (21:32)
[2020-08-23] MEDS ORDERED: Iopamidol 755 Mg/ML 100 ML Bottle IV ONE (22:06)
[2020-08-23] MEDS ORDERED: Levofloxacin/Dextrose 5%-Water 750 MG in Premix Bag 1 BAG IV SCH (23:15)
[2020-08-24] MEDS: Ibuprofen 400 MG Tab PO PRN (01:09)
[2020-08-24] MEDS: Sodium Chloride 0.9% 10 ML Syringe FLUSH PRN ×2 (01:09→10:02)
[2020-08-24] MEDS ORDERED: Enoxaparin 40 MG/0.4 ML Syringe SUBCUT SCH (09:00)
[2020-08-24] MEDS: Piperacillin/Tazobactam 4.5 GM in Sodium Chloride 0.9% 100 ML IV SCH ×2 (10:01→14:56)
[2020-08-24] MEDS: Saccharomyces Boulardii (Probiotic) 250 MG Cap PO SCH (10:02)
--- NOTE | 2020-08-24 11:35 | PCM.DCSUM1 ---
Discharge Summary - Hospital Course HPI Initial Comments: Jose Roberto presented to clinic today today with 7 day history of fevers, chills, bilateral lower quadrant abdominal pain, radiated to the back more on the right. Dr Waggoner saw him did labs and UA, suspected pyelonephritis, so sent over to ER for further evaluation and CT scan. His highest fever has been 104.9F, has been taking acetaminophen & ibuprofen alternating at home. Denies any sinus symptoms, shortness of breath, nausea, vomiting or diarrhea. Had a small hard stool yesterday. He states he has had some discharge on his underwear, no new sexual partners in last 10 years, and reports that the bathrooms at work are not clean, when he has to sit down to use when he has bowel movement. Bilateral CVA tenderness in ER, had CT abdomen/pelvis in ER and found to have bilateral pyelonephritis with cystitis. UA positive done in clinic showed large blood, ni trites positive, Large Leukocyte esterase, >30/hpf RBC, >50/hpf WBC, occasional epithelial cells, Moderate bacteria, WBC clumps present. Urine culture pending at [facility] lab, will get plated tonight, possible prelim report on Tuesday. Diagnosis: Stroke: No - Discharge Data Discharge Date: 08/24/20 Discharge Disposition: Home, Self-Care 01 Condition: Good - Referral to Home Health Primary Care Physician: PCP None - Discharge Diagnosis/Problem(s) (1) Bilateral pneumonia SNOMED Code(s): 771883136 ICD Code: J18.9 - PNEUMONIA, UNSPECIFIED ORGANISM Status: Acute Current Visit: Yes Problem Details: Found last night on CTA, Covid repeated this morning, again negative. Changed to Levofloxacin last night, this morning discontinued and started Zosyn 4.5 gm, will go home with Augmentin to cover both pneumonia and pyelonephritis. Qualifiers: Lung location: lower lobe of lung (2) Acute pyelonephritis SNOMED Code(s): 96251623 ICD Code: N10 - ACUTE PYELONEPHRITIS Status: Acute Current Visit: Yes Problem Details: Bilateral pyelonephritis on CT with acute cystitis. Zosyn 4.5 x 1, will go home with Augmentin bid x 11 days. Urine culture grew E. coli >100,000 cfu, sensitive to ciprofloxacin and augmentin. Ibuprofen 400 mg q4h as needed, alternating with Acetaminophen 650 mg q4h as needed. (3) Acute cystitis SNOMED Code(s): 58879332 ICD Code: N30.00 - ACUTE CYSTITIS WITHOUT HEMATURIA Status: Acute Current Visit: Yes Problem Details: UA positive for nitrites, LE, blood, wbc clumps present. UC: >100,000 cfu, E. coli(report in physical chart) sensitive to Ciprofloxacin and Augmentin. (4) Fever SNOMED Code(s): 626308117 ICD Code: R50.9 - FEVER, UNSPECIFIED Status: Resolved Current Visit: Yes (5) Dehydration SNOMED Code(s): 99883756 ICD Code: E86.0 - DEHYDRATION Status: Resolved Current Visit: Yes Problem Details: Resolved - Patient Summary/Data Hospital Course: Admitted for pyelonephritis from ER, urine was done in [facility]. Microbiology reports are in physical chart. WBC improved with ciprofloxacin. Hydrocodone/Apap was not used so discontinued. Tylenol & Toradol ordered for pain/fever, since he was not having pain, Toradol was not utilized for fever in between Tylenol doses so this was discontinued and started on Ibuprofen 400 mg q4h as needed, alternating with Tylenol and had better fever control. His chemistry improved with IV fluids. He started having some fine crackles on Tuesday am so IV fluids discontinued. He was eating better by Tuesday. Urine culture came back late Tuesday positive for E. coli, sensitive to Augmentin, cephalosporins and Ciprofloxacin, resistant to Sulfa. Continued on Ciprofloxacin. Overnight Tuesday developed some chest pressure so CTA was done, showed bilateral lower lobe pneumonia with small pleural effusions which was not present on CT abdomen/pelvis done on admission from ER, no pulmonary embolism. CRP was 16.5 on 08/21 and 18.0 last night. Changed to Levofloxacin last night. This morning changed to Zosyn 4.5 gram to better cover both pneumonia and py elonephritis, had 6 doses of Ciprofloxacin/Levofloxacin before changing to Zosyn so will go home with 11 days of Augmentin to complete course for both pyelonephritis(14 days, received 3 days already) and pneumonia(11 days). No further CVA or abdominal pain since Tuesday. - Patient Instructions Diet: Usual Diet as Tolerated Activity: As Tolerated, Cough & Deep Breathe Driving: Do Not Drive Showering/Bathing: May Shower Notify Provider of: Fever (shortness of breath), Increased Pain, Nausea and/or Vomiting Other/Special Instructions: Follow up with Lesly Schwab at [facility] in 1 week to recheck your pneumonia and your pyelonephritis(infection of kidney). Alternate Tylenol and Ibuprofen to control your fever: example Take Tylenol at noon, take Ibuprofen at 2pm, then take tylenol again at 4pm then Ibuprofen at 6pm. You may also take lukewarm bath/shower and use Ice packs if you are not due for any fever reducing medications. Work note given: May return to work if feeling better on Aug 27. - Discharge Plan *PRESCRIPTION DRUG MONITORING PROGRAM REVIEWED*: Not Applicable *COPY OF PRESCRIPTION DRUG MONITORING REPORT IN PATIENT GILBERTO: Not Applicable Prescriptions/Med Rec: Amoxicillin/Clavulanate K [Augmentin 875-125 MG] 1 tab PO BID 11 Days #22 tablet Ibuprofen 400 mg PO Q4H PRN #30 tablet PRN Reason: Fever Home Medications: Home Meds Acetaminophen [Tylenol] 650 mg PO Q4H PRN tablet 08/24/20 [Rx] Amoxicillin/Clavulanate K [Augmentin 875-125 MG] 1 tab PO BID 11 Days #22 tablet 08/24/20 [Rx] Ibuprofen 400 mg PO Q4H PRN #30 tablet 08/24/20 [Rx] Melatonin 6 mg PO BEDTIME PRN tablet 08/24/20 [Rx] Oxygen Therapy Mode: Room Air Patient Handouts: Amoxicillin; Clavulanic Acid tablets, Pyelonephritis, Adult, [id number], Ibuprofen tablets and capsules, Fall Prevention in Hospitals, Adult, Fever, Adult, [id number], Venous Thromboembolism Prevention, Community- Acquired Pneumonia, Adult, [id number] Forms: ED Department Discharge Referrals: Lesly Schwab, [facility] [employer] [Nurse Practitioner] - - Discharge Summary/Plan Comment DC Time >30 min.: No - General Info Date of Service: 08/24/20 Subjective Update: State he has no pain, been using Incentive spirometry, dry cough. Covid negative this morning. Feels much better, no fevers since 10 pm. Would like to go home. Had chest pressure last night, Dr Wu did CTA: showed no pulmonary embolism but did show bilateral lower lobe pneumonia which was not present on CT abdomen/pelvis done on 08/21. Ciprofloxacin was switched to Levofloxacin last night. I switched him to Zosyn this morning to cover both CAP and pyelonephritis. Urine culture came back positive for E. coli sensitive to Augmentin and Ciprofloxacin. Had 2 small stools yesterday, nothing yet today. Functional Status: Reports: Pain Controlled, Tolerating Diet, Ambulating, Urinating - Patient Data Vitals - Most Recent: Last Vital Signs Temp 99.1 F 08/24/20 06:48 Pulse 86 08/24/20 04:00 Resp 16 08/24/20 06:48 BP 118/76 08/24/20 04:00 Pulse Ox 92 L 08/24/20 04:00 Weight - Most Recent: 171 lb 5 oz I&O - Last 24 hours: Intake & Output 08/23/20 08/24/20 08/24/20 22:59 06:59 14:59 Intake Total 194 150 Balance 194 150 Lab Results - Last 24 hrs: Laboratory Results - last 24 hr 08/21/20 08/24/20 08/24/20 Range/Units 12:47 06:40 06:40 WBC 8.5 (3.2-10.1) x10-3/uL RBC 4.46 (3.90-5.90) x10(6)uL Hgb 13.0 (12.9-17.7) g/dL Hct 38.2 L (38.3-50.1) % MCV 85.7 (80.8-98.7) fL MCH 29.1 (27.0-33.3) pg MCHC 34.0 (28.7-35.3) g/dL RDW 12.9 (12.4-15.0) % Plt Count 240 (117-477) x10(3)uL MPV 7.8 (6.7-11.0) fL Neut % (Auto) 83.6 H (40.3-71.8) % Lymph % (Auto) 9.1 L (15.8-45.3) % [place] % (Auto) 6.7 (5.5-15.2) % Eos % (Auto) 0.3 (0.1-6.8) % Baso % (Auto) 0.3 (0.3-3.8) % Neut # (Auto) 7.1 H (1.7-6.9) x10-3/uL Lymph # (Auto) 0.8 (0.5-4.5) x10-3/uL [place] # (Auto) 0.6 (0.0-1.2) x10-3/uL Eos # (Auto) 0.0 (0.0-0.6) x10-3/uL Baso # (Auto) 0.0 (0.0-0.3) x10-3/uL Sodium 143 (135-145) mmol/L Potassium 3.7 (3.5-5.3) mmol/L Chloride 105 (100-110) mmol/L Carbon Dioxide 28 (21-32) mmol/L BUN 7 (7-18) mg/dL Creatinine 1.1 (0.70-1.30) mg/dL Est Cr Clr Drug Dosing 78.45 mL/min Estimated GFR (MDRD) > 60 (>60) BUN/Creatinine Ratio 6.4 L (9-20) Glucose 108 (80-116) mg/dL Lactic Acid (0.4-2.0) mmol/L Calcium 8.2 L (8.6-10.2) mg/dL Total Bilirubin 0.7 (0.1-1.3) mg/dL AST 30 H D (5-25) IU/L ALT 66 H D (12-36) U/L Alkaline Phosphatase 138 H (56-112) IU/L C-Reactive Protein 16.5 H* (0.5-0.9) mg/dL Total Protein 6.5 (6.0-8.0) g/dL Albumin 2.3 L (3.5-5.2) g/dL Globulin 4.2 g/dL Albumin/Globulin Ratio 0.6 SARS-CoV-2 RNA (JAIRO) (NEGATIVE) 08/24/20 08/24/20 08/24/20 Range/Units 06:40 06:40 08:39 WBC (3.2-10.1) x10-3/uL RBC (3.90-5.90) x10(6)uL Hgb (12.9-17.7) g/dL Hct (38.3-50.1) % MCV (80.8-98.7) fL MCH (27.0-33.3) pg MCHC (28.7-35.3) g/dL RDW (12.4-15.0) % Plt Count (117-477) x10(3)uL MPV (6.7-11.0) fL Neut % (Auto) (40.3-71.8) % Lymph % (Auto) (15.8-45.3) % [place] % (Auto) (5.5-15.2) % Eos % (Auto) (0.1-6.8) % Baso % (Auto) (0.3-3.8) % Neut # (Auto) (1.7-6.9) x10-3/uL Lymph # (Auto) (0.5-4.5) x10-3/uL [place] # (Auto) (0.0-1.2) x10-3/uL Eos # (Auto) (0.0-0.6) x10-3/uL Baso # (Auto) (0.0-0.3) x10-3/uL Sodium (135-145) mmol/L Potassium (3.5-5.3) mmol/L Chloride (100-110) mmol/L Carbon Dioxide (21-32) mmol/L BUN (7-18) mg/dL Creatinine (0.70-1.30) mg/dL Est Cr Clr Drug Dosing mL/min Estimated GFR (MDRD) (>60) BUN/Creatinine Ratio (9-20) Glucose (80-116) mg/dL Lactic Acid 0.7 (0.4-2.0) mmol/L Calcium (8.6-10.2) mg/dL Total Bilirubin (0.1-1.3) mg/dL AST (5-25) IU/L ALT (12-36) U/L Alkaline Phosphatase (56-112) IU/L C-Reactive Protein 18.0 H* (0.5-0.9) mg/dL Total Protein (6.0-8.0) g/dL Albumin (3.5-5.2) g/dL Globulin g/dL Albumin/Globulin Ratio SARS-CoV-2 RNA (JAIRO) Negative (NEGATIVE) Med Orders - Current: Current Medications Acetaminophen (Tylenol) 650 mg PO Q4H PRN PRN Reason: Pain/Fever Last Admin: 08/23/20 22:08 Dose: 650 mg Documented by: Piperacillin Sod/Tazobactam (Sod 4.5 gm/ Sodium Chloride) 100 mls @ 200 mls/hr IV Q6H [facility] Last Admin: 08/24/20 10:01 Dose: 200 mls/hr Documented by: Ibuprofen (Motrin) 400 mg PO Q4H PRN PRN Reason: Pain/Fever Last Admin: 08/24/20 01:09 Dose: 400 mg Documented by: Melatonin (Melatonin) 6 mg PO BEDTIME PRN PRN Reason: Insomnia Last Admin: 08/23/20 21:32 Dose: 6 mg Documented by: Polyethylene Glycol (Miralax) 17 gm PO DAILY PRN PRN Reason: Constipation Saccharomyces Boulardii (Florastor) 500 mg PO BID [facility] Last Admin: 08/24/20 10:02 Dose: 500 mg Documented by: Sodium Chloride (Saline Flush) 10 ml FLUSH DAILY PRN PRN Reason: Keep Vein Open Last Admin: 08/24/20 10:02 Dose: 10 ml Documented by: Discontinued Medications Acetaminophen (Tylenol Extra Strength) 1,000 mg PO ONETIME ONE Stop: 08/21/20 13:48 Last Admin: 08/21/20 13:52 Dose: 1,000 mg Documented by: Acetaminophen (Tylenol Extra Strength) 650 mg PO Q4H PRN PRN Reason: Pain/Fever Hydrocodone Bitart/Acetaminophen ([place] 325-5 Mg) 1 tab PO Q4H PRN PRN Reason: Pain (severe 7-10) Enoxaparin Sodium (Lovenox) 40 mg SUBCUT Q24H [facility] Last Admin: 08/24/20 10:03 Dose: Not Given Documented by: Hydromorphone HCl (Dilaudid) 1 mg IVPUSH ONETIME ONE Stop: 08/21/20 13:46 Last Admin: 08/21/20 13:51 Dose: 1 mg Documented by: Sodium Chloride (Normal Saline) 1,000 mls @ 999 drops/hr IV .BOLUS ONE Stop: 08/22/20 03:03 Last Admin: 08/21/20 12:17 Dose: 999 drops/hr Documented by: Sodium Chloride (Normal Saline) 1,000 mls @ 125 mls/hr IV ASDIRECTED [facility] Last Admin: 08/23/20 05:08 Dose: 125 mls/hr Documented by: Ciprofloxacin/Dextrose 400 mg/ (Premix) 200 mls @ 200 mls/hr IV ONETIME ONE Stop: 08/21/20 14:53 Last Admin: 08/21/20 14:09 Dose: 200 mls/hr Documented by: Ciprofloxacin/Dextrose 400 mg/ (Premix) 200 mls @ 200 mls/hr IV Q12H [facility] Last Admin: 08/23/20 14:10 Dose: 200 mls/hr Documented by: Levofloxacin/Dextrose 750 mg/ (Premix) 150 mls @ 100 mls/hr IV BEDTIME [facility] Last Admin: 08/23/20 23:35 Dose: 100 mls/hr Documented by: Iopamidol (Isovue-370 (76%)) 100 ml IV . DIRECTED ONE Stop: 08/21/20 12:37 Last Admin: 08/21/20 12:57 Dose: 100 ml Documented by: Iopamidol (Isovue-370 (76%)) 75 ml IV . DIRECTED ONE Stop: 08/23/20 22:07 Last Admin: 08/23/20 22:29 Dose: 75 ml Documented by: Ketorolac Tromethamine (Toradol) 30 mg IVPUSH Q6H [facility] Stop: 08/26/20 14:31 Last Admin: 08/21/20 16:25 Dose: Not Given Documented by: Ketorolac Tromethamine (Toradol) 30 mg IVPUSH Q6H PRN PRN Reason: Pain/Fever Stop: 08/26/20 14:31 Last Admin: 08/22/20 05:09 Dose: 30 mg Documented by: Morphine Sulfate (Morphine) 4 mg IVPUSH ONETIME ONE Stop: 08/21/20 12:04 Last Admin: 08/21/20 12:17 Dose: 4 mg Documented by: Ondansetron HCl (Zofran) 4 mg IVPUSH ONETIME ONE Stop: 08/21/20 12:11 Last Admin: 08/21/20 12:17 Dose: 4 mg Documented by: - Exam General: Reports: Alert, Oriented, Cooperative, No Acute Distress Lungs: Reports: Clear to Auscultation, Normal Respiratory Effort, Decreased Breath Sounds (bibasilar). Denies: Crackles, Rales, Wheezing Cardiovascular: Reports: Regular Rate, Regular Rhythm GI/Abdominal Exam: Normal Bowel Sounds, Soft, Non-Tender, No Distention Back Exam: Denies: CVA Tenderness (R), CVA Tenderness (L) Extremities: No Pedal Edema, Normal Capillary Refill Skin: Reports: Warm, Dry, Intact
== END 2020-08-24 12:30 | disposition home or self-care (01) | DRG 139 ==
LOC: FB.ED 11:39 → FB.MS 14:01
PROVIDERS: ADMIT Family Medicine; ATTEND Family Medicine
DX: J18.9 Pneumonia, unspecified organism (principal); N10 Acute pyelonephritis; N30.00 Acute cystitis without hematuria; E86.0 Dehydration; B96.20 Unspecified Escherichia coli [E. coli] as the cause of diseases classified elsewhere; Z16.29 Resistance to other single specified antibiotic; Z79.899 Other long term (current) drug therapy; Z20.828 Contact with and (suspected) exposure to other viral communicable diseases; K59.00 Constipation, unspecified
CPT/HCPCS: 36415; 71275; 74177; 80048; 80053; 83605; 83690; 85025; 86140; 87040; 94150; 96374; 96375; 99284; 99285-25; A9270-GY; J0744; J1170; J1885; J1956; J2270; J2405; J2543; J7030; J7050; Q9967; U0002